=== PATIENT | female | born 1955 | race Caucasian/White ===

== ENCOUNTER 2016-09-14 14:00 | Inpatient (IN) | payer OTHER ==
--- NOTE | ~2016-09-14 | DS ---
Unit #: [id number] #: [id number] Patient: FABIO HYDE [id number] [place] [address] [id number] MR#: [id number] NAME: FABIO HYDE ROOM: P263 Age: 61 Sex: F Admission Date: 09/14/2016 : 1955 Discharge Date: 09/20/2016 Attending Physician: Chino Delgado M.D. Primary Care Physician: Lenny Casillas M.D. DISCHARGE SUMMARY REASON FOR ADMISSION Janessa is a 61-year-old woman, known to me from previous admissions, who reported increasing hopelessness and helplessness due to multiple psychosocial problems. She has not been hospitalized in many years and has been sober for a long time, but recently relapsed briefly on alcohol after a family argument. She was unable to contract for safety and was admitted for stabilization. DIAGNOSTIC STUDIES LABORATORY RESULTS: Please see hospital chart. HOSPITAL COURSE Janessa was admitted and placed on suicide precautions. She did not demonstrate any detox symptomatology, her relapse having been brief, and she was returned to treatment with Seroquel 100 mg at bedtime for sleep, Prozac 20 mg t.i.d. for depression, and Vistaril 25 mg t.i.d. as needed for anxiety. Cymbalta 60 mg daily was added to supplement her antidepressant action and she enrolled appropriately in unit groups and activities. She had an uneventful hospital course and attended groups and activities as requested. She did have a fractious relationship with her daughter who was involved in her care and who agreed on the date of discharge, she was able to contract for safety in the outpatient setting. After followup was arranged with her social service worker, she was discharged in stable condition. DISCHARGE DIAGNOSES AXIS I: Major depression, history of alcohol dependence. AXIS II: No diagnosis. AXIS III: Hypothyroidism, high cholesterol, vitamin B12 deficiency. AXIS IV: AXIS V: DISCHARGE INSTRUCTIONS Follow up with the adult psychiatric IOP at our facility and with her primary care physician. DISCHARGE MEDICATIONS Prozac 20 mg t.i.d. for depression, Cymbalta 60 mg daily for depression, Vistaril 25 mg t.i.d. for anxiety, Seroquel 100 mg at bedtime as needed for insomnia. Primary care medicines included Synthroid 50 mcg daily for hypothyroidism, Zocor 10 mg at bedtime for high cholesterol, vitamin B12 1000 mcg every seven days by IM injection for vitamin B12 deficiency, and Unit #: [id number] #: [id number] Patient: FABIO HYDE the therapeutic multivitamin tablet daily for general health. CONDITION AT DISCHARGE Improved. PROGNOSIS Good. DIET AND ACTIVITY Per primary care doctor. Dictated by... Chino Delgado M.D. CANDIDO/bryan TD: 09/21/2016 15:16 JOB #: [id number] DISCHARGE SUMMARY Page 1 of 1 X Chino Delgado MD X DISCHARGE SUMMARY
--- NOTE | ~2016-09-14 | PN ---
Unit #: [id number] #: [id number] Patient: IVETTE HYDE [id number] [facility] [address] [place] [address] [id number] MR#: [id number] NAME: IVETTE HYDE ROOM: [facility] Age: 61 Sex: F Admission Date: 09/14/2016 : 1955 Attending Physician: Chino Delgado M.D. Admitting Physician: Chino Delgado M.D. Primary Care Physician: Janelle Da Silva PROGRESS NOTES DATE OF SERVICE 09/17/2016 DISCUSSION Ivette continues to have depressed mood with a downcast affect. She is alert and fully oriented with no evidence of psychosis. She does report ongoing suicidal ideation. She is willing to sustain her hospitalization and sign a voluntary admission. She continues to have a difficult relationship with her daughter. ASSESSMENT Major depression. PLAN We will permit the patient to sign a voluntary admission and continue to work forward a family session. Dictated by... Janelle Cruz/seferino TD: 09/21/2016 21:13 JOB #: [id number] [facility] PROGRESS NOTES Page 1 of 1 X Chino Delgado MD PROGRESS NOTE
--- NOTE | ~2016-09-14 | PN ---
Unit #: [id number] #: [id number] Patient: FABIO HYDE [id number] [facility] [address] [place] [address] [id number] I MR#: [id number] NAME: FABIO HYDE ROOM: [facility] Age: 61 Sex: F Admission Date: 09/14/2016 : 1955 Attending Physician: Chino Delgado M.D. Admitting Physician: Chino Delgado M.D. Primary Care Physician: Janelle Da Silva PROGRESS NOTES DATE 09/18/2016 DISCUSSION This patient was seen and evaluated on September 19, 2016. The patient continues to report difficulty sleeping. She also reports some anxiety, but she is coping. She denies any SI or HI and contracts for safety. She is attending groups and participating in unit activities. She is pleasant, calm, and cooperative during interaction. The patient denies any SI of HI an contracts for safety. She will meet with her primary psychiatrist tomorrow, Dr. Delgado. Dictated by... Abilio Foote/bzmarcus TD: 09/21/2016 10:42 JOB #: [id number] [facility] PROGRESS NOTES Page 1 of 1 X Claritza Schaffer PROGRESS NOTE
--- NOTE | ~2016-09-14 | TN ---
Unit #: [id number] #: [id number] Patient: FABIO HYDE [id number] [place] [address] [id number] I MR#: [id number] NAME: FABIO HYDE ROOM: P263 Age: 61 Sex: F Admission Date: 09/14/2016 : 1955 Discharge Date: 09/20/2016 Attending Physician: Chino Delgado M.D. Primary Care Physician: Lenny Casillas M.D. LOC TRANSFER NOTE DATE OF SERVICE: 09/23/2016 HISTORY OF PRESENT ILLNESS Ms. Hyde is a 61-year-old, single, white female with a history of mood disorder and alcohol dependence, was stepped down to the outpatient treatment program from the adult inpatient psychiatric unit, where she was hospitalized from 09/14/2016 to 09/20/[address] the [address] Delgado and was brought to the hospital with depression and alcohol dependence and was medically detoxed and stabilized on her medication regimen and stepped down to the outpatient treatment program. On evaluation by me today, the patient reports doing fairly well, though she states that she was started on Cymbalta on the inpatient unit, but her prescription plan would not cover that and she reports she has not been able to get that. Meanwhile, she reports being sober since being discharged from the hospital and has been showing improvement in her depressive symptoms and denies any suicidal ideations, intent, or plan. SUBSTANCE ABUSE HISTORY The patient has a history of alcohol dependence, but denies any other substance abuse issues. PAST PSYCHIATRIC HISTORY The patient has had a history of inpatient and outpatient psychiatric treatments and has been diagnosed and treated for mood disorder. She is currently on a combination of psychotropic medications. PAST MEDICAL HISTORY Dyslipidemia and hypothyroidism. ALLERGIES No known medication allergies. PERSONAL AND SOCIAL HISTORY A 61-year-old white female, who reports that she lives at home with her family and has fairly decent social support system. MENTAL STATUS EXAMINATION Middle-aged white female, who was casually dressed with fair personal hygiene, appears to be in no acute distress or discomfort. She was awake and alert on interaction with intact orientation to time, place, and person. Her mood was anxious and depressed with a congruent affect. Her speech was slow and goal directed. The patient denies any suicidal or homicidal ideations and also denies any auditory or visual hallucinations. Unit #: [id number] #: [id number] Patient: FABIO HYDE Her insight and judgment remain slightly impaired. DIAGNOSTIC IMPRESSION Psychiatric: Major depressive disorder, recurrent, moderate, without psychotic features; alcohol dependence. Medical: Hypothyroidism and dyslipidemia. Stressors: Moderate psychosocial stressors. TREATMENT PLAN 1. The patient has presented with a history of mood disorder and substance abuse. We will recommend enrolling her into the outpatient treatment program and maintaining her on her current medications. We will switch her Cymbalta to Effexor XR. 2. Supportive therapy was provided to the patient. ESTIMATED LENGTH OF STAY 14 to 21 days. ABILITY TO HELP SELF Limited. WILLINGNESS TO HELP SELF The patient appears to be willing to help self. STRENGTHS 1. Communicative. 2. Cooperative. PROBLEMS 1. Chronic dysphoric symptoms. 2. Chronic chemical dependency. 3. Poor social support system. DISCHARGE CRITERIA This will be contingent upon the patient's ability to show resolution of her depression and anxiety and her ability to stay safe and sober, particularly after discharge from the program. Dictated by... Miriam Tracey M.D. VANESA/bryan TD: 09/24/2016 02:50 JOB #: [id number] Unit #: [id number] #: [id number] Patient: FABIO HYDE LOC TRANSFER NOTE Page 1 of 1 X Miriam Tracey MD X LOC TRANSFER NOTE
--- NOTE | ~2016-09-14 | PN ---
Unit #: [id number] #: [id number] Patient: IVETTE HYDE [id number] [facility] [address] [place] [address] [id number] I MR#: [id number] NAME: IVETTE HYDE ROOM: [facility] Age: 61 Sex: F Admission Date: 09/14/2016 : 1955 Attending Physician: Chino Delgado M.D. Admitting Physician: Chino Delgado M.D. Primary Care Physician: Janelle Da Silva PROGRESS NOTES DATE 09/16/2016 DISCUSSION Ivette continues to have some depression today and is compliant with medication. Her mood is depressed with a downcast affect. She is alert and fully oriented. Her memory and concentration are fair and her thought processes are logical with no psychosis. She reports some conflict with her daughter who says she is "insisting" on a longer hospital stay. ASSESSMENT Major depression. PLAN We will continue current treatment plan and I would like a family session to address the patient's interpersonal issues with her family. Dictated by... Chino Delgado M.D. CANDIDO/jt TD: 09/21/2016 21:20 JOB #: [id number] [facility] PROGRESS NOTES Page 1 of 1 X Chino Delgado MD PROGRESS NOTE
--- NOTE | ~2016-09-14 | HP ---
Unit #: [id number] #: [id number] Patient: IVETTE HYDE [id number] [place] [address] [id number] MR#: [id number] NAME: IVETTE HYDE ROOM: [facility] Age: 61 Sex: F Admission Date: 09/14/2016 : 1955 Attending Physician: Chino Delgado M.D. Admitting Physician: Chino Delgado M.D. Primary Care Physician: Lenny Casillas M.D. HISTORY AND PHYSICAL HISTORY OF PRESENT ILLNESS Ivette is a 61 year old admitted to [address] [place] [address] with depression. PAST MEDICAL HISTORY 1. Seizure disorder 2. Hypothyroidism PAST SURGICAL HISTORY 1. x2 2. D & C secondary to a miscarriage 3. Oral ALLERGIES No known drug allergies. SOCIAL HISTORY She denies cigarettes and alcohol. Admits to a history of cocaine use. FAMILY HISTORY Medically noncontributory. REVIEW OF SYSTEMS CONSTITUTIONAL: No fever or chills. HEENT: Denies any sore throat, ear pain or runny nose. CARDIOVASCULAR: Denies chest pain, irregular heart rhythm or palpitations. CHEST: Denies shortness of breath or cough. No hemoptysis. GASTROINTESTINAL: Denies nausea, vomiting, diarrhea or chronic constipation. ENDOCRINE: Denies history of increased thirst or urination. No recent significant weight loss or gain. GENITOURINARY: Denies dysuria, frequency, or hematuria. SKIN: Denies any rashes. HEMATOLOGIC: Denies history of increased bleeding or bruising. MUSCULOSKELETAL: Denies any hot, swollen joints. No generalized muscle pain. NEUROLOGIC: Denies problems with vision or speech. No frequent, severe headaches. No numbness, tingling or weakness in any extremities. Denies loss of bladder or bowel control. CURRENT MEDICATIONS No orders received at the time of this dictation. Unit #: [id number] #: [id number] Patient: IVETTE HYDE PHYSICAL EXAMINATION GENERAL: Alert, well-nourished, in no apparent distress. VITAL SIGNS: Blood pressure 120/72, heart rate 80, respirations 16, temperature 98.6. WEIGHT: 147 pounds. HEIGHT: 5'4". SKIN: Warm and dry without rash or lesion. HEENT: Normocephalic. TMs not viewed. Oral and nasal passages clear. Conjunctivae clear. Pupils equal, round and reactive to light and accommodation. Extraocular movements intact. NECK: Supple without lymphadenopathy or thyromegaly. HEART: Regular rate and rhythm without murmur. LUNGS: Clear. ABDOMEN: Soft, nontender. : Not done. EXTREMITIES: No evidence of cyanosis, clubbing or edema. Moves all extremities without focal deficit. NEUROLOGICAL: Grossly within normal limits. Cranial Nerves: II: Visual chatterjee are intact. III, IV AND : Extraocular movements are intact. Pupils are equal, round and reactive to light. V: Facial sensation is grossly normal. VII: Facial movements and expression are normal. VIII: Auditory acuity grossly intact. IX, X: Uvula is midline. Phonation is normal. XI: Patient shrugs shoulders and turns head normally. XII: Tongue protrudes in the midline. Sensory and Motor Function: Sensory and motor sensation is grossly normal. Motor: moves all extremities well. Coordination: Gait is normal. Deep Tendon Reflexes: Intact. IMPRESSION Psychiatric admission RECOMMENDATIONS PSYCHIATRIC: Per psychiatrist. MEDICAL: I see no contraindications to participating in facility's activities. MEDICAL PROGNOSIS Good. MEDICAL CONDITION Stable. Dictated by... Diallo MejíaAAkira-Dominga. for Janelle Arambula/seferino TD: 09/15/2016 03:33 JOB #: [id number] Unit #: [id number] #: [id number] Patient: IVETTE HYDE HISTORY AND PHYSICAL Page 1 of 1 X Cristel Del Castillo X HISTORY AND PHYSICAL
--- NOTE | ~2016-09-14 | PN ---
Unit #: [id number] #: [id number] Patient: FABIO HYDE [id number] [facility] [address] [place] [address] [id number] MR#: [id number] NAME: FABIO HYDE ROOM: [facility] Age: 61 Sex: F Admission Date: 09/14/2016 : 1955 Attending Physician: Chino Delgado M.D. Admitting Physician: Chino Delgado M.D. Primary Care Physician: Janelle Da Silva PROGRESS NOTES DATE 09/18/2016 DISCUSSION This patient was seen and evaluated on September 18, 2016. She is pleasant and cooperative. She is attending groups and in activities. She reports difficulty sleeping at night. She is currently taking trazodone. She also reports a long history of anxiety. The patient has no other complaints at this time. Her appetite is good. She will continue inpatient treatment for safety and stabilization and medication management. Dictated by... Abilio Foote/bzg TD: 09/21/2016 10:28 JOB #: [id number] [facility] PROGRESS NOTES Page 1 of 1 X Claritza Schaffer PROGRESS NOTE
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
[~2016-09-14 14:00] MED LIST: ATARAX PO; BIOTIN; BUSPAR PO; DEPAKOTE PO; KEFLEX PO; LEVOTHYROXIN; LEVOXYL50 MC1 PO; LOMOTIL TABLET1 TAB; LOMOTIL TABLET1 TAB PO; PHENERGAN; PROTONIX PO; PROZAC PO; SEROQUEL PO; TOPAMAX PO; VICODIN; WELLBUTRIN; WELLBUTRIN PO; ZOFRAN PO; ZYPREXA
== END 2016-09-20 17:00 | disposition home or self-care (01) | DRG 885 ==
LOC: P2L 15:45
DX: F33.2 Major depressive disorder, recurrent severe without psychotic features (principal); R45.851 Suicidal ideations; G40.909 Epilepsy, unspecified, not intractable, without status epilepticus; E03.9 Hypothyroidism, unspecified; E78.00 Pure hypercholesterolemia, unspecified; E53.8 Deficiency of other specified B group vitamins; F41.9 Anxiety disorder, unspecified
CPT/HCPCS: J3420